=== PATIENT | male | born 1985 | race Caucasian/White ===

== ENCOUNTER 2016-06-15 05:20 | Emergency (ER) | payer SELFPAY ==
[~2016-06-15] VITALS: Ht 180.3 cm; Wt 72.6 kg
[2016-06-15] MEDS ORDERED: NKM (05:29)
--- NOTE | 2016-06-15 05:40 | Emergency Room Report ---
History of Present Illness General Chief Complaint: Earache Source: Patient Present Illness HPI Is a 30-year-old male with no past medical history. He presents with chief complaint of swelling to the right ear. He may have had trauma but he does not remember. This occurred 2 weeks ago. The next day woke up and there was a scratch on his face. He has some swelling to the upper part of his right ear. He is worried that it may be cancer. Denies any other complaint. Minimal pain. Allergies: Uncoded Allergies: POLLENS (Allergy, Unknown, 06/15/16) Patient History Past Medical History: none, see triage record, old chart reviewed Past Surgical History: none Pertinent Family History: none Social History: Reports: alcohol use Immunizations: other Reviewed Nursing Documentation: PMH: Agreed, PSxH: Agreed Nursing Documentation-PM Past Medical History: No Stated History Review of Systems Eye: Denies: blurred vision, eye pain ENT: Denies: ear pain, nose congestion, throat swelling Respiratory: Denies: cough, shortness of breath Cardiovascular: Denies: chest pain, palpitations Gastrointestinal: Denies: abdominal pain, diarrhea, nausea, vomiting Musculoskeletal: Denies: back pain, joint pain Skin: Denies: rash Neurological: Denies: headache, numbness Endocrine: Denies: increased thirst, increased urine Hematologic/Lymphatic: Denies: easy bruising All Other Systems: negative except mentioned in HPI Physical Exam Vital Signs Date Time Temp Pulse Resp B/P Pulse Ox O2 Delivery O2 Flow Rate FiO2 06/15/16 05:24 98.1 110 18 121/81 95 Room Air vitals with tachycardia Sp02 EP Interpretation: reviewed, normal General Appearance: well appearing, no apparent distress, alert Head: normocephalic, atraumatic Eyes: bilateral eye EOMI, bilateral eye PERRL ENT: hearing grossly normal, normal pharynx, other - Right ear: On the superior aspect of his right ear there is a perichondrial hematoma. No redness or warmth. No evidence of infection. Neck: full range of motion, supple, no meningismus Respiratory: chest non-tender, lungs clear, normal breath sounds Cardiovascular #1: regular rate, rhythm, no murmur Gastrointestinal: normal bowel sounds, non tender, no mass, no organomegaly, no bruit, non-distended Musculoskeletal: back normal, gait/station normal, normal range of motion Psychiatric: mood/affect normal Skin: warm/dry Medical Decision Making Diagnostic Impression: Primary Impression: Cauliflower ear, right ear ER Course Patient presents with trauma to the right ear sustaining a perichondrial hematoma. Unfortunately, this has been over 2 weeks. This will most likely be permanent. Explained this to the patient. I see no evidence of infection or cancer. Last Vital Signs Date Time Temp Pulse Resp B/P Pulse Ox O2 Delivery O2 Flow Rate FiO2 06/15/16 05:24 98.1 110 18 121/81 95 Room Air Status: unchanged Disposition: HOME, SELF-CARE Condition: Stable Additional Instructions: Followup with your Dr. in 7 days. Return if worse. SANTOS PINEDA M.D. Jun 15, 2016 05:40
[2016-06-15 05:49] VITALS: BP 121/81
[2016-06-15 05:50] VITALS: BP 121/81
== END 2016-06-15 06:00 | disposition home or self-care (01) ==
LOC: EMR 05:59
DX: M95.11 Cauliflower ear, right ear (principal); Z91.048 Other nonmedicinal substance allergy status
CPT/HCPCS: 99281